=== PATIENT | male | born 1950 | race Caucasian/White ===

== ENCOUNTER 2022-12-19 13:28 | Emergency (ER) | payer MEDICARE, OTHER ==
[2022-12-19 13:40] VITALS: RESP 18
--- NOTE | 2022-12-19 13:40 | ED ---
General Adult HPI - General Stated complaint: CANCER IN LOWER BACK Time Seen by Provider: 12/19/22 13:39 Source: patient, RN notes reviewed Mode of arrival: ambulatory Limitations: no limitations - History of Present Illness Initial comments: 72-year-old male presents emergency Department chief complaint low back pain. Patient states been having increasing pain last 7-10 days. 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 He states he also has been out of his morphine, hydrocodone. Patient denies any bowel, bladder incontinence or retention. Patient states that he has recently been placed on meloxicam, prednisone and he is also on Zanaflex. - Related Data Allergies Allergy/AdvReac Type Severity Reaction Status Date / Time No Known Allergies Allergy Verified 12/19/22 13:40 Review of Systems ROS Statement: Those systems with pertinent positive or pertinent negative responses have been documented in the HPI. ROS Other: All systems not noted in ROS Statement are negative. General Exam - General Exam Comments Initial Comments: Visual Physical Exam Vital signs reviewed General: Well-appearing, nontoxic, no acute distress. Head: Normocephalic, atraumatic Eyes: PERRLA, EOMI ENT: Airway patent Chest: Nonlabored breathing Skin: No visual rash, normal skin tone Neuro: Alert and oriented 3 Musculoskeletal: No gross abnormalities Limitations: no limitations General appearance: alert, in no apparent distress ENT exam: Present: normal exam, mucous membranes moist Neck exam: Present: normal inspection, full ROM. Absent: tenderness, meningismus, lymphadenopathy Respiratory exam: Present: normal lung sounds bilaterally. Absent: respiratory distress, wheezes, rales, rhonchi, stridor Cardiovascular Exam: Present: regular rate, normal rhythm, normal heart sounds. Absent: systolic murmur, diastolic murmur, rubs, gallop, clicks GI/Abdominal exam: Present: soft, normal bowel sounds. Absent: distended, tenderness, guarding, rebound, rigid Extremities exam: Present: normal inspection, full ROM, normal capillary refill. Absent: tenderness, pedal edema, joint swelling, calf tenderness Back exam: Present: full ROM, tenderness, paraspinal tenderness, vertebral tenderness Course Vital Signs 12/19/22 13:35 Temperature 99.3 F Pulse Rate 70 Respiratory 18 Rate Blood Pressure 115/64 O2 Sat by Pulse 99 Oximetry Medical Decision Making - Medical Decision Making I performed a quick note portion of this chart signed Soy Joshi PA-C Was pt. sent in by a medical professional or institution ([facility] Cisneros, PUNCH MACHINE OPERATOR, urgent care, hospital, or correction...) When possible be specific @ -No Did you speak to anyone other than the patient for history (EMS, parent, family, police, friend...)? What history was obtained from this source @ -No Did you review nursing and triage notes (agree or disagree)? Why? @ -I reviewed and agree with nursing and triage notes Were old charts reviewed (outside hosp., previous admission, EMS record, old EKG, old radiological studies, urgent care reports/EKG's, correction records)? Report findings @ -No old charts were reviewed Differential Diagnosis (chest pain, altered mental status, abdominal pain women, abdominal pain men, vaginal bleeding, weakness, fever, dyspnea, syncope, headach e, dizziness, GI bleed, back pain, seizure, CVA, palpatations, mental health, musculoskeletal)? @ -Back pain, metastatic disease EKG interpreted by me (3pts min.). @ -None X-rays interpreted by me (1pt min.). @ -X-ray shows metastatic disease of lumbar spine acute fracture CT interpreted by me (1pt min.). @ -None done U/S interpreted by me (1pt. min.). @ -None done What testing was considered but not performed or refused? (CT, X-rays, U/S, labs)? Why? @ -None What meds were considered but not given or refused? Why? @ -None Did you discuss the management of the patient with other professionals (professionals i.e. LUKAS Cisneros, PUNCH MACHINE OPERATOR, lab, RT, psych nurse, social media strategist, bilingual call center representative, teacher, risk officer, cyanide case hardener)? Give summary @ -No Was smoking cessation discussed for >3mins.? @ -No Was critical care preformed (if so, how long)? @ -No Were there social determinants of health that impacted care today? How? (Homelessness, low income, unemployed, alcoholism, drug addiction, transportation, low edu. Level, literacy, decrease access to med. care, half-way, rehab)? @ -No Was there de-escalation of care discussed even if they declined (Discuss DNR or withdrawal of care, Hospice)? DNR status @ -No What co-morbidities impacted this encounter? (DM, HTN, Smoking, COPD, CAD, Cancer, CVA, ARF, Chemo, Hep., AIDS, mental health diagnosis, sleep apnea, morbid obesity)? @ -None Was patient admitted / discharged? Hospital course, mention meds given and route, prescriptions, significant lab abnormalities, going to OR and other pertinent info. @ -Discharge patient updated x-ray findings, assembler body pain is improved. Patient has refill of his pain meds in 2 days. Patient discharged in stable condition. Chest or infectious symptoms Undiagnosed new problem with uncertain prognosis? @ -No Drug Therapy requiring intensive monitoring for toxicity (Heparin, Nitro, Insulin, Cardizem)? @ -No Were any procedures done? @ -No Diagnosis/symptom? @ -Back pain, metastatic prostate cancer Acute, or Chronic, or Acute on Chronic? @ -Acute on chronic Uncomplicated (without systemic symptoms) or Complicated (systemic symptoms)? @ -Uncomplicated Side effects of treatment? @ -No Exacerbation, Progression, or Severe Exacerbation? @ -No Poses a threat to life or bodily function? How? (Chest pain, [place], [place], pneumonia, PE, COPD, DKA, ARF, appy, cholecystitis, CVA, Diverticulitis, Homicidal, Suicidal, threat to staff... and all critical care pts) @ -No Disposition Clinical Impression: Back pain, Metastatic cancer to bone Disposition: HOME SELF-CARE Condition: Stable Instructions (If sedation given, give patient instructions): Acute Low Back Pain (ED) Additional Instructions: Please return to the Emergency Department if symptoms worsen or any other concerns. Is patient prescribed a controlled substance at d/c from ED?: No Referrals: Coleman Rothman DO [Primary Care Provider] - 1-2 days Time of Disposition: 15:40
--- NOTE | 2022-12-19 14:29 | XR ---
EXAMINATION TYPE: XR lumbosacral spine min 4V DATE OF EXAM: 12/19/2022 CLINICAL HISTORY: pain COMPARISON: NONE TECHNIQUE: Frontal, lateral, and oblique images of the lumbar spine are obtained. FINDINGS: There is curvature convex to the left. There is bony sclerosis noted suspicious for blasti c metastatic disease. There are 5 lumbar type vertebral bodies identified. The lumbar spine shows sa tisfactory alignment without evidence of acute fracture or dislocation. Vertebral body heights are wi thin normal limits. Moderate to severe degenerative disc space narrowing at L3-4 through L5-S1 with f acet joint arthropathy. The overlying soft tissue appears unremarkable. IMPRESSION: There is bony sclerosis noted suspicious for blastic metastatic disease.
[2022-12-19] MEDS ORDERED: MORPHINE SULFATE ER 15 MG TABLET PO STA (14:39)
[2022-12-19] MEDS ORDERED: CYCLOBENZAPRINE 10MG STARTER 3 TAB BTL PO STA (15:41)
[2022-12-19] MEDS ORDERED: HYDROcodone/APAP 10-325MG 1 EACH TAB PO ONE (15:41)
[2022-12-19 16:09] VITALS: BP 112/66; PULSE 74; TEMP 97.6
== END 2022-12-19 17:35 | disposition home or self-care (01) ==
LOC: EC 13:28
DX: C79.51 Secondary malignant neoplasm of bone (principal); C61 Malignant neoplasm of prostate
CPT/HCPCS: 72110; 99283

== ENCOUNTER → 2023-02-27 | Outpatient (CLI) | payer MEDICARE ==
--- NOTE | 2023-02-27 15:23 | MM ---
Reason for Exam: Additional evaluation requested from prior study. Patient History: Other cancer, age 69. Tissue Density: The breast tissue is heterogeneously dense. This may lower the sensitivity of mammography. Findings: Analyzed By CAD. Bilateral symmetric retroareolar gynecomastia identified. No suspicious masses or calcifications. No architecture distortion. Overall Assessment: Benign, BI-RAD 2 Management: Clinical Management in 1 year. A clinical breast exam by your physician is recommended on an annual basis and results should be correlated with mammographic findings. This exam should not preclude additional follow-up of suspicious palpable abnormalities. Results were given to the patient verbally at the time of exam. Electronically signed and approved by: Kaz Harkins D.O.
== END | disposition home or self-care (01) ==
LOC: RADMAMWWP 14:29
PROVIDERS: ATTEND Internal Medicine
DX: R92.333 Mammographic heterogeneous density, bilateral breasts (principal); C61 Malignant neoplasm of prostate
CPT/HCPCS: 77066; G0279; 77062

== ENCOUNTER 2023-04-18 12:11 | Emergency (ER) | payer OTHER ==
--- NOTE | 2023-04-18 12:51 | ED ---
General Adult HPI <Wilfred Almonte - Last Filed: 04/18/23 12:52> <Molina Lugo - Last Filed: 05/10/23 21:09> - General Stated complaint: Abd/Back pain Time Seen by Provider: 04/18/23 12:49 - History of Present Illness Initial comments: 73-year-old male presenting to the ED with a chief complaint of pain. Patient states a week ago fell. Was seen and evaluated at the [place]. States had a CAT scan performed that day. States that this revealed a rib fracture. Patient reports continued pain since the fall on the waist up. Additionally, notes nausea, vomiting, and diarrhea over the past few days. States has been unable to keep anything down. (Wilfred Almonte) - Related Data Home Medications Medication Instructions Recorded Confirmed Celecoxib [CeleBREX] 200 mg PO BID 04/18/23 04/18/23 Cholecalciferol [Vitamin D3 (10 10 mcg PO DAILY 04/18/23 04/18/23 Mcg = 400 Iu)] Enzalutamide [Xtandi] 160 mg PO DAILY 04/18/23 04/18/23 HYDROcodone/APAP 10-325MG [[place] 1 tab PO Q6H PRN 04/18/23 04/18/23 10-325] Lidocaine 5% Patch [Lidoderm 5% 1 patch TOPICAL DAILY PRN 04/18/23 04/18/23 Patch] Rosuvastatin [Crestor] 10 mg PO DAILY 04/18/23 04/18/23 Sildenafil [Revatio] 20 mg PO TID 04/18/23 04/18/23 Venlafaxine HCl [Effexor XR] 75 mg PO DAILY 04/18/23 04/18/23 tiZANidine [Zanaflex] 4 mg PO HS PRN 04/18/23 04/18/23 Allergies Allergy/AdvReac Type Severity Reaction Status Date / Time No Known Allergies Allergy Verified 04/18/23 20:27 Review of Systems ROS Other: All systems not noted in ROS Statement are negative. <Wilfred Almonte - Last Filed: 04/18/23 12:52> ROS Other: All systems not noted in ROS Statement are negative. <Molina Lugo - Last Filed: 05/10/23 21:09> ROS Statement: Those systems with pertinent positive or pertinent negative responses have been documented in the HPI. Past Medical History Past Medical History: Cancer Additional Past Medical History / Comment(s): prostate cancer with mets to bones History of Any Multi-Drug Resistant Organisms: None Reported Past Surgical History: No Surgical Hx Reported Past Psychological History: PTSD Smoking Status: Never smoker Past Alcohol Use History: Rare Past Drug Use History: Marijuana <Wilfred Almonte - Last Filed: 04/18/23 12:52> General Exam <Wilfred Almonte - Last Filed: 04/18/23 12:52> Limitations: no limitations General appearance: alert, in no apparent distress Head exam: Present: atraumatic, normocephalic Eye exam: Present: normal appearance. Absent: scleral icterus, conjunctival injection Neck exam: Present: normal inspection Respiratory exam: Present: normal lung sounds bilaterally, chest wall te nderness. Absent: respiratory distress, wheezes, rales, rhonchi, stridor, accessory muscle use, decreased breath sounds Cardiovascular Exam: Present: regular rate, normal rhythm, normal heart sounds. Absent: systolic murmur, diastolic murmur, rubs, gallop GI/Abdominal exam: Present: soft. Absent: distended, tenderness, guarding, rebound, rigid, mass Extremities exam: Present: normal inspection, normal capillary refill. Absent: pedal edema, calf tenderness Back exam: Present: normal inspection. Absent: CVA tenderness (R), CVA tenderness (L) Neurological exam: Present: alert Skin exam: Present: warm, dry, intact, normal color. Absent: rash <Molina Lugo - Last Filed: 05/10/23 21:09> - General Exam Comments Initial Comments: Visual Physical Exam Vital signs reviewed General: Well-appearing, nontoxic, no acute distress. Head: Normocephalic, atraumatic Eyes: PERRLA, EOMI ENT: Airway patent Chest: Nonlabored breathing Skin: No visual rash, normal skin tone Neuro: Alert Musculoskeletal: No gross abnormalities (MarikasvitlanarudyWilfred) Course Vital Signs 04/18/23 04/18/23 04/18/23 13:17 19:32 20:10 Temperature 98.9 F 98.7 F Pulse Rate 68 70 64 Respiratory 18 18 17 Rate Blood Pressure 100/65 128/54 117/66 O2 Sat by Pulse 98 100 Oximetry 12/27/23 12/27/23 12/27/23 21:00 22:00 22:30 Temperature Pulse Rate 63 67 68 Respiratory 18 16 20 Rate Blood Pressure 110/45 96/64 86/57 O2 Sat by Pulse 100 100 99 Oximetry 04/19/23 01:33 Temperature 98.2 F Pulse Rate 68 Respiratory 16 Rate Blood Pressure 98/70 O2 Sat by Pulse 96 Oximetry EKG Findings - EKG Results: EKG: interpreted by ERMD, sinus rhythm (Rate 60 bpm), normal axis, normal QRS, normal ST/T, no acute changes <Molina Lugo - Last Filed: 05/10/23 21:09> Medical Decision Making <Wilfred Almonte - Last Filed: 04/18/23 12:52> - Lab Data Result diagrams: 04/18/23 13:23 04/18/23 13:23 - EKG Data -: EKG Interpreted by Me EKG shows normal: sinus rhythm, axis (Normal), intervals (Normal), QRS complexes (Normal), ST-T waves (Normal) Rate: normal (Rate 60 bpm) Interpretation: normal EKG <Molina Lugo - Last Filed: 05/10/23 21:09> - Medical Decision Making Quicknote portion performed. Signed Wilfred Almonte PA-C (Wilfred Almonte) The patient had CT of the chest which I interpreted as not showing acute pulmonary embolism. Was pt. sent in by a medical professional or institution ([facility] Cisneros, OPERATIONS EXAMINER, urgent care, hospital, or snf...) When possible be specific @ -[No] Did you speak to anyone other than the patient for history (EMS, parent, family, police, friend...)? What history was obtained from this source @ -[No] Did you review nursing and triage notes (agree or disagree)? Why? @ -[I reviewed and agree with nursing and triage notes] Were old charts reviewed (outside hosp., previous admission, EMS record, old EKG, old radiological studies, urgent care reports/EKG's, snf records)? Report findings @ -[No old charts were reviewed] Differential Diagnosis (chest pain, altered mental status, abdominal pain women, abdominal pain men, vaginal bleeding, weakness, fever, dyspnea, syncope, headache, dizziness, GI bleed, back pain, seizure, CVA, palpatations, mental health, musculoskeletal)? @ -[Differential Chest Pain: Stable Angina, Unstable Angina, STEMI, NSTEMI Aortic Dissection, Pneumothorax, Musculoskeletal, Esophageal Spasm GERD, Cholecystitis, Pancreatitis, Zoster, this is not meant to be an all-inclusive list. EKG interpreted by me (3pts min.). @ -[As above] X-rays interpreted by me (1pt min.). @ -[None done] CT interpreted by me (1pt min.). @ -[I interpreted as above U/S interpreted by me (1pt. min.). @ -[None done] What testing was considered but not performed or refused? (CT, X-rays, U/S, labs)? Why? @ -[None] What meds were considered but not given or refused? Why? @ -[None] Did you discuss the management of the patient with other professionals (professionals i.e. , PA, OPERATIONS EXAMINER, lab, RT, psych nurse, psychotherapist social worker, croze machine operator, teacher, business enterprise officer, outpatient case manager)? Give summary @ -[No] Was smoking cessation discussed for >3mins.? @ -[No] Was critical care preformed (if so, how long)? @ -[No] Were there social determinants of health that impacted care today? How? (Homelessness, low income, unemployed, alcoholism, drug addiction, transportation, low edu. Level, literacy, decrease access to med. care, [facility], rehab)? @ -[No] Was there de-escalation of care discussed even if they declined (Discuss DNR or withdrawal of care, Hospice)? DNR status @ -[No] What co-morbidities impacted this encounter? (DM, HTN, Smoking, COPD, CAD, Cancer, CVA, ARF, Chemo, Hep., AIDS, mental health diagnosis, sleep apnea, morbid obesity)? @ -[None] Was patient admitted / discharged? Hospital course, mention meds given and route, prescriptions, significant lab abnormalities, going to OR and other pertinent info. @ -[Patient is 73-year-old man with history of prostate cancer and known metastases metastatic disease is here with chest wall pain. Given risk factor for PE, he has computed tomography scan of the chest which is negative. The patient is feeling better following medication, offered admission. Patient's stable to have further care as outpatient and would like to go. Undiagnosed new problem with uncertain prognosis? @ -[No] Drug Therapy requiring intensive monitoring for toxicity (Heparin, Nitro, Insulin, Cardizem)? @ -[No] Were any procedures done? @ -[No] Diagnosis/symptom? @ -[Chest wall pain Acute, or Chronic, or Acute on Chronic? @ -[aCute Uncomplicated (without systemic symptoms) or Complicated (systemic symptoms)? @ -[Complicated Side effects of treatment? @ -[No] Exacerbation, Progression, or Severe Exacerbation? @ -[No] Poses a threat to life or bodily function? How? (Chest pain, [place], [place], pneumonia, PE, COPD, DKA, ARF, appy, cholecystitis, CVA, Diverticulitis, Homicidal, Suicidal, threat to staff... and all critical care pts) @ -[No] (Molina Lugo) - Lab Data Lab Results 04/18/23 04/18/23 04/18/23 Range/Units 13:23 13:23 13:23 WBC 4.1 (3.8-10.6) k/uL RBC 3.69 L (4.30-5.90) m/uL Hgb 10.1 L (13.0-17.5) gm/dL Hct 31.6 L (39.0-53.0) % MCV 85.5 (80.0-100.0) fL MCH 27.4 (25.0-35.0) pg MCHC 32.0 (31.0-37.0) g/dL RDW 15.4 (11.5-15.5) % Plt Count 514 H (150-450) k/uL MPV 6.7 Neutrophils % (Manual) 67 % Lymphocytes % (Manual) 7 % Monocytes % (Manual) 21 % Eosinophils % (Manual) 5 % Basophils % (Manual) 1 % Metamyelocytes % 1 % Neutrophils # (Manual) 2.75 (1.3-7.7) k/uL Lymphocytes # (Manual) 0.29 L (1.0-4.8) k/uL Monocytes # (Manual) 0.86 (0-1.0) k/uL Eosinophils # (Manual) 0.21 (0-0.7) k/uL Basophils # (Manual) 0.04 (0-0.2) k/uL Metamyelocytes # (Man) 0.04 H (0) k/uL Nucleated RBCs 0 (0-0) /100 WBC Manual Slide Review Performed RBC Morphology Normal PT 10.5 (10.0-12.5) sec INR 1.0 (<1.2) APTT 24.7 (22.0-30.0) sec Sodium (137-145) mmol/L Potassium (3.5-5.1) mmol/L Chloride (98-107) mmol/L Carbon Dioxide (22-30) mmol/L Anion Gap mmol/L BUN (9-20) mg/dL Creatinine (0.66-1.25) mg/dL Est GFR (CKD-EPI)AfAm (>60 ml/min/1.73 sqM) Est GFR (CKD-EPI)NonAf (>60 ml/min/1.73 sqM) Glucose (74-99) mg/dL Calcium (8.4-10.2) mg/dL Total Bilirubin (0.2-1.3) mg/dL AST (17-59) U/L ALT (4-49) U/L Alkaline Phosphatase (38-126) U/L Troponin I (0.000-0.034) ng/mL Total Protein (6.3-8.2) g/dL Albumin (3.5-5.0) g/dL Amylase (30-110) U/L Lipase (23-300) U/L Urine Color Yellow Urine Appearance Clear (Clear) Urine pH 5.0 (5.0-8.0) Ur Specific P[place]roy 1.026 (1.001-1.035) Urine Protein Trace H (Negative) Urine Glucose (UA) Negative (Negative) Urine Ketones Negative (Negative) Urine Blood Negative (Negative) Urine Nitrite Negative (Negative) Urine Bilirubin Negative (Negative) Urine Urobilinogen <2.0 (<2.0) mg/dL Ur Leukocyte Esterase Negative (Negative) 04/18/23 04/18/23 Range/Units 13:23 13:23 WBC (3.8-10.6) k/uL RBC (4.30-5.90) m/uL Hgb (13.0-17.5) gm/dL Hct (39.0-53.0) % MCV (80.0-100.0) fL MCH (25.0-35.0) pg MCHC (31.0-37.0) g/dL RDW (11.5-15.5) % Plt Count (150-450) k/uL MPV Neutrophils % (Manual) % Lymphocytes % (Manual) % Monocytes % (Manual) % Eosinophils % (Manual) % Basophils % (Manual) % Metamyelocytes % % Neutrophils # (Manual) (1.3-7.7) k/uL Lymphocytes # (Manual) (1.0-4.8) k/uL Monocytes # (Manual) (0-1.0) k/uL Eosinophils # (Manual) (0-0.7) k/uL Basophils # (Manual) (0-0.2) k/uL Metamyelocytes # (Man) (0) k/uL Nucleated RBCs (0-0) /100 WBC Manual Slide Review RBC Morphology PT (10.0-12.5) sec INR (<1.2) APTT (22.0-30.0) sec Sodium 139 (137-145) mmol/L Potassium 3.8 (3.5-5.1) mmol/L Chloride 102 (98-107) mmol/L Carbon Dioxide 25 (22-30) mmol/L Anion Gap 12 mmol/L BUN 14 (9-20) mg/dL Creatinine 0.67 (0.66-1.25) mg/dL Est GFR (CKD-EPI)AfAm >90 (>60 ml/min/1.73 sqM) Est GFR (CKD-EPI)NonAf >90 (>60 ml/min/1.73 sqM) Glucose 98 (74-99) mg/dL Calcium 8.7 (8.4-10.2) mg/dL Total Bilirubin 0.3 (0.2-1.3) mg/dL AST 19 (17-59) U/L ALT 10 (4-49) U/L Alkaline Phosphatase 205 H (38-126) U/L Troponin I <0.012 (0.000-0.034) ng/mL Total Protein 6.6 (6.3-8.2) g/dL Albumin 3.4 L (3.5-5.0) g/dL Amylase 40 (30-110) U/L Lipase 39 (23-300) U/L Urine Color Urine Appearance (Clear) Urine pH (5.0-8.0) Ur Specific [place] (1.001-1.035) Urine Protein (Negative) Urine Glucose (UA) (Negative) Urine Ketones (Negative) Urine Blood (Negative) Urine Nitrite (Negative) Urine Bilirubin (Negative) Urine Urobilinogen (<2.0) mg/dL Ur Leukocyte Esterase (Negative) Disposition <Wilfred Almonte - Last Filed: 04/18/23 12:52> Is patient prescribed a controlled substance at d/c from ED?: No <Molina Lugo - Last Filed: 05/10/23 21:09> Clinical Impression: Chest wall syndrome Disposition: HOME SELF-CARE Condition: Good Instructions (If sedation given, give patient instructions): Chest Pain (ED) Referrals: [facility] [Primary Care Provider] - 1-2 days
[2023-04-18 13:58] LABS: Partial Thromboplastin Time 24.7 sec (22.0-30.0); Prothrombin Time 10.5 sec (10.0-12.5)
[2023-04-18 14:02] LABS: ALT 10 U/L (4-49); AST 19 U/L (17-59); African American GFR (CKD) >90 (>60 ml/min/1.73 sqM); Albumin 3.4 g/dL (3.5-5.0); Alkaline Phosphatase 205 U/L (38-126); Amylase 40 U/L (30-110); Anion Gap 12 mmol/L; Blood Urea Nitrogen 14 mg/dL (9-20); Calcium 8.7 mg/dL (8.4-10.2); Carbon Dioxide 25 mmol/L (22-30); Chloride 102 mmol/L (98-107); Glucose 98 mg/dL (74-99); Lipase 39 U/L (23-300); Non-African American GFR(CKD) >90 (>60 ml/min/1.73 sqM); Potassium 3.8 mmol/L (3.5-5.1); Sodium 139 mmol/L (137-145); Total Bilirubin 0.3 mg/dL (0.2-1.3); Total Protein 6.6 g/dL (6.3-8.2)
[2023-04-18 14:14] LABS: HCT 31.6 % (39.0-53.0); HGB 10.1 gm/dL (13.0-17.5); MCH 27.4 pg (25.0-35.0); MCV 85.5 fL (80.0-100.0); Mean Platelet Volume 6.7; Platelet Count 514 k/uL (150-450); RBC 3.69 m/uL (4.30-5.90); RDW 15.4 % (11.5-15.5); WBC 4.1 k/uL (3.8-10.6)
[2023-04-18 15:09] LABS: Basophils # (M) 0.04 k/uL (0-0.2); Eosinophils # (M) 0.21 k/uL (0-0.7); Lymphocytes # (M) 0.29 k/uL (1.0-4.8); Metamyelocytes # (M) 0.04 k/uL (0); Metamyelocytes % 1 %; Monocytes # (M) 0.86 k/uL (0-1.0); Neutrophils # (M) 2.75 k/uL (1.3-7.7); Neutrophils % (M) 67 %; Nucleated Red Blood Cells 0 /100 WBC (0-0); Total Cells Counted 200
[2023-04-18 15:11] LABS: RBC Morphology Normal
[2023-04-18 19:30] LABS: Appearance,Urine Clear (Clear); Bilirubin,Urine Negative (Negative); Blood,Urine Negative (Negative); Color,Urine Yellow; Glucose,Urine (UA) Negative (Negative); Ketones,Urine Negative (Negative); Leukocyte Esterase,Urine Negative (Negative); Nitrite,Urine Negative (Negative); Protein,Urine Trace (Negative); Specific Gravity,Urine 1.026 (1.001-1.035); Urobilinogen,Urine <2.0 mg/dL (<2.0)
[2023-04-18] MEDS ORDERED: MORPHINE SULFATE 4 MG/ML SYRINGE IVP STA (22:55)
[2023-04-18] MEDS ORDERED: SODIUM CHLORIDE 0.9% 1,000 ML IV STA ×2 (22:55→22:56)
[2023-04-18] MEDS ORDERED: ONDANSETRON 4 MG/2 ML VIAL IVP STA (22:55)
[2023-04-18] MEDS ORDERED: fentaNYL (PF) 50 MCG/ML 2 ML AMP IVP STA (23:00)
[2023-04-18] MEDS ORDERED: KETOROLAC 15 MG/ML 1 ML VIAL IVP STA (23:00)
[2023-04-18 23:38] VITALS: PULSE 68
--- NOTE | 2023-04-18 23:48 | CT ---
EXAMINATION TYPE: CT chest angio for PE CT DLP: 225.1 mGycm, Automated exposure control for dose reduction was used. DATE OF EXAM: 04/18/2023 8:22 PM COMPARISON: None. CLINICAL INDICATION:Male, 73 years old with history of chest pain; pt c/o left chest wall pain, neck pain, and intermittent chest discomfort TECHNIQUE/CONTRAST: CTA scan of the thorax is performed with IV Contrast, patient injected with 62ml mL of Isovue 300, RI P images are created and reviewed these are created on a separate workstation.. FINDINGS: Pulmonary Artery: There is no evidence for a filling defect within the pulmonary vasculature to sugge st acute pulmonary embolism. The pulmonary artery is of normal size. Heart: Heart is within normal limits for size. Vasculature: Mild calcifications of the aortic valve and aorta. Fusiform ectasia of the ascending aor ta up to 3.9 cm. Conventional 3 vessel branch pattern without significant narrowing of the proximal b ranch vessels. The descending aorta is 2.9 cm. Mostly atherosclerotic disease in the upper abdominal aorta without significant narrowing of the proximal celiac, superior mesenteric, bilateral renal keily amber. Mediastinum: No gross evidence of adenopathy. Moderate sized hiatal hernia. Postoperative changes in the region of the GE junction. Airway: Central airways are patent. Lower neck: No significant findings. Soft Tissues: Mild bilateral gynecomastia. Lungs/Pleura: No evidence of focal consolidation, pleural effusion or pneumothorax. A few tiny pulmon fernandez nodular densities, for example 3 mm in the right upper lobe image 20 series 406, not particularly concerning for active metastatic disease. No large nodule or mass is identified. There are mild emph ysematous changes. No consolidation or pneumothorax identified. There is a rather small left pleural effusion. Musculoskeletal: No clearly acute bony abnormality. There is a heterogeneous appearance with diffuse mixed lytic/blastic lesions throughout the visualized spine and to a lesser degree other osseous stru ctures compatible with metastatic disease. Some loss of height with Schmorl's node formation along th e superior endplates T12 and L1, as well as the inferior endplate T12, technically age indeterminate but not clearly acute. No dominant or destructive bony lesion. Upper Abdomen: No significant findings. IMPRESSION: 1. No evidence of pulmonary embolism. 2. No evidence of acute pulmonary disease. Small left pleural effusion. 3. Mild atherosclerotic disease of the aorta with fusiform ectasia of the descending thoracic aorta up to 3.9 cm. 4. Moderate hiatal hernia. 5. Diffusely abnormal osseous structures, with mixed lytic/blastic appearance, consistent with osseo us metastatic disease.
[2023-04-19] MEDS ORDERED: ONDANSETRON 4 MG ODT STARTER PACK 2 TAB BTL PO STA (00:20)
[2023-04-19 01:56] VITALS: BP 98/70; RESP 16; TEMP 98.2
== END 2023-04-19 01:36 | disposition home or self-care (01) ==
LOC: EC 12:11
DX: R07.1 Chest pain on breathing (principal); F12.90 Cannabis use, unspecified, uncomplicated
CPT/HCPCS: 36415; 93005; 80053; 82150; 83690; 84484; 85025; 85610; 85730; 81003; 71275; 99285; 96374; 96361 ×2; J1885; S0119; Q9967